=== PATIENT | male | born 1950 | race Caucasian/White ===

== ENCOUNTER 2017-04-01 14:28 | Emergency (ER) | payer BC, OTHER ==
[~2017-04-01] VITALS: Ht 182.9 cm; Wt 98.4 kg
[2017-04-01 15:33] LABS: Basophils # (auto) 0 uL; Basophils % (auto) 0.4 % (0.0-2.0); Eosinophils # (auto) 0.1 uL; Eosinophils % (auto) 2.1 % (0.0-7.0); Hematocrit 45.9 % (41.0-53.0); Hemoglobin 15.8 g/dL (13.5-17.5); Lymphocytes # (auto) 1.3 uL; Mean Corpuscular Hemoglobin 31.5 pg (28.0-32.0); Mean Corpuscular Hgb Conc. 34.3 g/dL (32.0-36.0); Mean Corpuscular Volume 91.7 fL (80.0-100.0); Mean Platelet Volume 7.1 fL (6.9-10.8); Monocytes # (auto) 0.5 uL; Monocytes % (auto) 8.3 % (0.0-12.0); Neutrophils # (auto) 4.1 uL; Neutrophils % (auto) 68.2 % (37.0-80.0); Platelet Count (auto) 105 10^3/uL (140-450); Red Cell Distribution Width 13.8 % (11.8-14.3)
[2017-04-01 15:46] LABS: BUN/Creatinine Ratio 14.6; Bilirubin, Total 1.3 mg/dL (0.2-1.0); Calcium 9.6 mg/dL (8.5-10.1); Potassium 3.7 mmol/L (3.5-5.1); Total Protein 7.7 g/dL (6.4-8.2)
[2017-04-01 15:49] LABS: INR 0.92 (0.9-1.15); Partial Thromboplastin Time 24.5 sec (22.64-33.71)
[2017-04-01 18:08] VITALS: BP 153/91
== END 2017-04-01 19:54 | disposition home or self-care (01) ==
LOC: ER 14:59
DX: L03.115 Cellulitis of right lower limb (principal); E11.9 Type 2 diabetes mellitus without complications; I10 Essential (primary) hypertension; E78.5 Hyperlipidemia, unspecified; Z88.0 Allergy status to penicillin
CPT/HCPCS: 36415; 80053; 85025; 85610; 85730

== ENCOUNTER 2020-06-30 07:00 | Day surgery (SDC) | payer BC ==
[~2020-06-30] VITALS: Ht 182.9 cm; Wt 94.3 kg
[~2020-06-30 07:00] MED LIST: BACL10TA PO; BENA20TA14 PO; EMPA1TAB3 PO; METO25TA5 PO; RIV15T PO; SIMV-8 PO; TERA2CAP45 PO
[2020-06-30] MEDS ORDERED: LIDOCAINE 2%HCL (LOCAL ANESTH.) INJ 20ML MDV ONE (07:08)
[2020-06-30] MEDS ORDERED: IODIXANOL 320MG/ML 100ML BTL IV ONE ×2 (07:08→08:33)
[2020-06-30] MEDS ORDERED: ANGIOMAX 250 MG VIAL IV ONE (08:06)
[2020-06-30] MEDS ORDERED: MIDAZOLAM HCL 1MG/1ML-2 ML VIAL ONE (08:06)
[2020-06-30] MEDS ORDERED: fentaNYL CITRATE 100 MCG/2 ML VL ONE (08:06)
[2020-06-30] MEDS ORDERED: SODIUM CHL 0.9% 0 ML ONE (08:07)
[2020-06-30] MEDS ORDERED: VERAPAMIL 2.5MG/ML INJ 2ML VIAL IV ONE (08:08)
[2020-06-30] MEDS ORDERED: HEPARIN SODIUM (PORCINE) 5000 UNITS/ML 1ML VIAL ONE (08:21)
[2020-06-30] MEDS ORDERED: HYDROcodone-ACET 5/325MG TAB PO PRN (08:45)
[2020-06-30] MEDS ORDERED: ACETAMINOPHEN 500 MG TAB PO PRN (08:45)
== END 2020-06-30 10:30 | disposition home or self-care (01) ==
LOC: CATH 07:00
PROVIDERS: ATTEND Internal Medicine
DX: R94.39 Abnormal result of other cardiovascular function study (principal); I25.118 Atherosclerotic heart disease of native coronary artery with other forms of angina pectoris; Z20.822 Contact with and (suspected) exposure to COVID-19; Z98.890 Other specified postprocedural states; Z79.899 Other long term (current) drug therapy; Z88.0 Allergy status to penicillin; Z68.28 Body mass index [BMI] 28.0-28.9, adult
CPT/HCPCS: 93454; C1769; C1887; C1894; J1644; J2250; J3010; Q9967; U0003; 99152

== ENCOUNTER 2022-07-13 10:01 | Emergency (ER) | payer BC ==
[~2022-07-13] VITALS: Ht 182.9 cm; Wt 96.8 kg
[2022-07-13 12:29] LABS: Basophils # (auto) 0 10 ^3/uL (0-0.2); Basophils % (auto) 0.3 % (0.0-2.0); Eosinophils # (auto) 0.1 10 ^3/uL (0-0.8); Eosinophils % (auto) 1.8 % (0.0-7.0); Hematocrit 50.5 % (41.0-53.0); Hemoglobin 17.6 g/dL (13.5-17.5); Lymphocytes # (auto) 1.1 10 ^3/uL (0.4-5.4); Lymphocytes % (auto) 23.2 % (10.0-50.0); Mean Corpuscular Hemoglobin 31.4 pg (28.0-32.0); Mean Corpuscular Hgb Conc. 34.8 g/dL (32.0-36.0); Mean Corpuscular Volume 90.1 fL (80.0-100.0); Monocytes # (auto) 0.4 10 ^3/uL (0-1.3); Monocytes % (auto) 8.2 % (0.0-12.0); Neutrophils # (auto) 3.2 10 ^3/uL (1.6-8.6); Neutrophils % (auto) 66.5 % (37.0-80.0); Nucleated Red Blood Cells % 0.2 %; Red Cell Distribution Width 13.4 % (11.8-14.3); White Blood Cell 4.8 10^3/uL (4.4-10.8)
[2022-07-13 13:04] LABS: Albumin 4.3 g/dL (3.4-5.0); BUN/Creatinine Ratio 17.9; Bilirubin, Total 2.4 mg/dL (0.2-1.0); CRP High Sensitivity 0.24 mg/dL (< 0.3); Calcium 9.8 mg/dL (8.5-10.1); Potassium 3.7 mmol/L (3.5-5.1); Total Protein 7.1 g/dL (6.4-8.2)
[2022-07-13] MEDS ORDERED: IOHEXOL 350 MG/ML 100ML IJ ONE (14:51)
[2022-07-13] MEDS ORDERED: RIV20T PO (19:40)
[2022-07-13] MEDS ORDERED: RIV15T PO (19:40)
[2022-07-13] MEDS ORDERED: ASPirin 325 MG TAB PO ONE (19:45)
[2022-07-13] MEDS ORDERED: RIVAROXABAN 15 MG TAB PO ONE (20:00)
[2022-07-13 20:11] VITALS: BP 147/57
== END 2022-07-13 20:12 | disposition home or self-care (01) ==
LOC: ER 10:01
DX: I82.4Z1 Acute embolism and thrombosis of unspecified deep veins of right distal lower extremity (principal); I10 Essential (primary) hypertension; E11.9 Type 2 diabetes mellitus without complications; E78.5 Hyperlipidemia, unspecified; Z90.49 Acquired absence of other specified parts of digestive tract; Z79.899 Other long term (current) drug therapy; Z88.0 Allergy status to penicillin
CPT/HCPCS: 36415; 71275; 80053; 82962; 83605; 83880; 84484; 85025; 86141; 93971; 99285; Q9967